=== PATIENT | male | born 1985 ===

== ENCOUNTER 2017-08-10 19:32 | Emergency (ER) | payer BC ==
[2017-08-10 19:52] VITALS: BP 129/81
--- NOTE | 2017-08-10 20:21 | RAD ---
INDICATION: Pain with supination of the RIGHT hand along the ulnar aspect of wrist following injury rock climbing. COMPARISON: No relevant prior exams available on the [facility] [place]. TECHNIQUE: AP and lateral views RIGHT wrist. REPORT: Normal articular alignment and preserved joint spaces. No cortical disruption or suspicious trabecular irregularity to suggest fracture. Small bone island at the ulnar styloid without concern. Unremarkable soft tissue contours. IMPRESSION: No radiographic evidence for RIGHT wrist fracture. If there is high index of suspicion for an occult scaphoid fracture repeat exam in 7 - 10 days would be suggested.
--- NOTE | 2017-08-10 21:24 | UC ---
Audrey Xie Elizabeth, scribed for Amando Sandoval MD on 08/10/17 at 2003 . Hand/Wrist HPI - HPI Summary HPI Summary: This patient is a 31 year old M presenting to [facility] with a chief complaint of right wrist pain since earlier this evening. The patient reports that he was bouldering tonight and felt something pop in his right wrist when he pulled himself up. The patient rates the pain 2/10 in severity. Symptoms aggravated by twisting his wrist. Symptoms alleviated by nothing. Patient denies any pain with flexion or extension of his right wrist. - History Of Current Complaint Chief Complaint: UCUpperExtremity Stated Complaint: RIGHT WRIST INJURY Time Seen by Provider: 08/10/17 19:46 Hx Obtained From: Patient Onset/Duration: Sudden Onset, Lasting Minutes, Still Present Severity Initially: Mild Severity Currently: Mild Pain Intensity: 2 Pain Scale Used: 0-10 Numeric Aggravating Factor(s): Twisting Alleviating Factor(s): Nothing - Allergies/Home Medications Allergies/Adverse Reactions: Allergies Allergy/AdvReac Type Severity Reaction Status Date / Time No Known Allergies Allergy Verified 08/10/17 19:53 Home Medications: Home Medications Multivitamin [Multivitamins] 1 cap PO DAILY 08/10/17 [History Confirmed 08/10/17 ] PMH/Surg Hx/FS Hx/Imm Hx Previously Healthy: Yes - Surgical History Surgical History: Yes Surgery Procedure, Year, and Place: hernia as . undescended testicle - Family History Known Family History: Positive: None - Patient denies FHx - Social History Alcohol Use: Daily Substance Use Type: None Smoking Status (MU): Never Smoked Tobacco Review of Systems Constitutional: Negative - NEGATIVE FEVER ENT: Negative - NEGATIVE EPISTAXIS Gastrointestinal: Negative - NEGATIVE VOMITING Musculoskeletal: Arthralgia - right wrist pain All Other Systems Reviewed And Are Negative: Yes Physical Exam - Summary Physical Exam Summary: VITAL SIGNS: Reviewed. GENERAL: Patient is a well-developed and nourished MALE who is lying comfortable in the stretcher. Patient is not in any acute respiratory distress. HEAD AND FACE: Normocephalic EYES: PERRLA, EOMI x 2. EARS: Hearing grossly intact. MOUTH: Oropharynx within normal limits. NECK: Supple, trachea is midline, no adenopathy, no JVD, no carotid bruit. CHEST: Symmetric, no tenderness at palpation LUNGS: Clear to auscultation bilaterally. No wheezing or crackles. CVS: Regular rate and rhythm, S1 and S2 present, no murmurs or gallops appreciated. ABDOMEN: Soft, non-tender. Bowel sounds are normal. No abdominal abnormal pulsations. EXTREMITIES: Full ROM in all major joints, no edema, no cyanosis or clubbing. NEURO: Alert and oriented x 3. No acute neurological deficits. Speech is normal and follows commands. SKIN: Dry and warm Triage Information Reviewed: Yes Vital Signs: Initial Vital Signs Temp 98.4 F 08/10/17 19:47 Pulse 62 08/10/17 19:47 Resp 16 08/10/17 19:47 BP 129/81 08/10/17 19:47 Pulse Ox 100 08/10/17 19:47 Vital Signs Reviewed: Yes Diagnostics - Radiology Right wrist XR Xray Interpretation: No Acute Changes - IMPRESSION: No radiographic evidence for RIGHT wrist fracture. If there is high index of suspicion for an occult scaphoid fracture repeat exam in 7 - [address] Sandoval has reviewed this report. Radiology Interpretation Completed By: Radiologist Hand/Wrist Course/Dx - Course Course Of Treatment: X-ray of the right wrist impression: Negative for acute fracture dislocation. Patient will be taking ibuprofen or Tylenol for the pain. It seems that the patient had increased pain. She will be placed in the [place] wrap and discharged home with follow-up with PCP. Patient is hemodynamically stable alert and oriented 3. - Differential Dx/Diagnosis Provider Diagnoses: Wrist sprain Discharge - Sign-Out/Discharge Documenting (check all that apply): Discharge/Admit/Transfer - Discharge Plan Condition: Stable Disposition: HOME Discharge Disposition Comment: discharge home Patient Education Materials: Wrist Sprain (ED) Referrals: [facility] [place] [facility] [Outside] [facility] [place] [facility] [Outside] No Primary Care Phys,NOPCP [Primary Care Provider] - Additional Instructions: Take ibuprofen or Tylenol for the pain. Applies ice over heat for pain intermittently. Follow-up with PCP. The documentation as recorded by the Audrey wade Elizabeth accurately reflects the service I personally performed and the decisions made by Jaime alegria Walter, MD.
== END 2017-08-10 20:30 | disposition home or self-care (01) ==
LOC: UCEAST 19:32
DX: S63.501A Unspecified sprain of right wrist, initial encounter (principal); X50.1XXA Overexertion from prolonged static or awkward postures, initial encounter; Y93.9 Activity, unspecified; Y92.9 Unspecified place or not applicable
CPT/HCPCS: 99201; G0463

== ENCOUNTER 2018-10-01 21:41 | Emergency (ER) | payer BC ==
--- NOTE | 2018-10-01 21:47 | UC ---
Laceration HPI - HPI Summary HPI Summary: 32 yo male presents with finger laceration. He tells me he was cutting food and the knife slipped and he lacerated his right index finger. Bandaged the area and came to . Last tetanus within the last 3 years - History Of Current Complaint Stated Complaint: FINGER LAC Time Seen by Provider: 10/01/18 21:47 Hx Obtained From: Patient Laceration Location: Finger Mechanism Of Injury: Sharp Trauma Onset/Duration: Sudden Onset Severity: Mild Pain Intensity: 2 Pain Scale Used: 0-10 Numeric - Allergies/Home Medications Allergies/Adverse Reactions: Allergies Allergy/AdvReac Type Severity Reaction Status Date / Time No Known Allergies Allergy Verified 10/01/18 22:15 PMH/Surg Hx/FS Hx/Imm Hx - Additional Past Medical History Additional PMH: None - Surgical History Surgical History: Yes Surgery Procedure, Year, and Place: hernia as . undescended testicle - Family History Known Family History: Positive: None - Patient denies FHx - Social History Occupation: Employed Full-time Lives: With Family Alcohol Use: Weekly Substance Use Type: None Smoking Status (MU): Never Smoked Tobacco Review of Systems All Other Systems Reviewed And Are Negative: Yes Constitutional: Positive: Negative Skin: Positive: Other - Right index finger laceration Respiratory: Positive: Negative Cardiovascular: Positive: Negative Musculoskeletal: Positive: Negative Neurological: Positive: Negative Psychological: Positive: Negative Physical Exam - Summary Physical Exam Summary: GENERAL: NAD. WDWN. No pain distress. SKIN: RIGHT index finger: dorsal aspect overlying PIP with crescent shaped 1.0cm laceration through the dermis. No appreciable tendon involvement. Mild active bleeding. CHEST: No accessory muscle use. Breathing comfortably and in no distress. CV: Pulses intact. Cap refill <2seconds MSK: Right index finger FROM at MCP, DIP, and PIP with intact strength NEURO: Alert. PSYCH: Age appropriate behavior. Triage Information Reviewed: Yes Vital Signs: Vital Signs: Temp Pulse Resp BP Pulse Ox 97.9 F 56 18 116/62 96 10/01/18 21:59 10/01/18 21:59 10/01/18 21:59 10/01/18 21:59 10/01/18 21:59 Vital Signs Reviewed: Yes Laceration Repair - Laceration Repair 1 Description: Linear Laceration Size After Repair: Length (cm) - 1.0 Anesthesia Used: 2.0% Lido Irrigation With Pressure Irrigation Device: Yes Closure Material: Sutures - #4 Closure Method: Single Layer Suture Of: Skin Suture Type: Prolene - 5-0 Laceration Course/Dx - Course/Dx Course Of Treatment: The procedure was explained to the pt and all questions were answered. A time out was performed, witnessed, and signed. The area was irrigated with 200mL sterile saline. 1mL of 2% lidocaine without epi was administered and good anesthetization was achieved. In the usual sterile fashion, FOUR 5-0 prolene interrupted sutures were placed. The wound was bandaged with telfa. Pt tolerated procedure well. Will have him use a finger splint for the next 2-3 days to allow wound to heal. Cover area daily with bandage changing daily until sutures removed. - Diagnosis Provider Diagnosis: Finger laceration Discharge - Sign-Out/Discharge Documenting (check all that apply): Patient Departure All imaging exams completed and their final reports reviewed: No Studies - Discharge Plan Condition: Stable Disposition: HOME Patient Education Materials: Care For Your Stitches (ED), Laceration (ED) Referrals: No Primary Care Phys,NOPCP [Primary Care Provider] - Additional Instructions: If you develop a fever, shortness of breath, chest pain, new or worsening symptoms - please call your PCP or go to the ED immediately. 1) Please keep the area bandage, clean, dry, and intact for the next 24- 48hours. Then change the bandage daily until sutures are removed. Use the finger splint as much as possible for the next 2-3 days to limit flexion of your finger. 2) If you develop a fever, colored or thick discharge, increased pain or swelling - please call your PCP or return for a wound check. 3) Please return in 10-12 days to have your FOUR sutures removed. - Billing Disposition and Condition Condition: STABLE Disposition: Home
[2018-10-01] MEDS ORDERED: Lidocaine 2% PF * 5 ML VIAL INJ ONE (21:48)
[2018-10-01 22:15] VITALS: BP 116/62
== END 2018-10-01 22:38 | disposition home or self-care (01) ==
LOC: UCEAST 21:41
DX: S61.210A Laceration without foreign body of right index finger without damage to nail, initial encounter (principal); W26.0XXA Contact with knife, initial encounter; Y93.G9 Activity, other involving cooking and grilling; Y92.010 Kitchen of single-family (private) house as the place of occurrence of the external cause; Y99.8 Other external cause status
CPT/HCPCS: 12041; 99212; G0463